=== PATIENT | male | born 1950 | race African-American/Black ===

== ENCOUNTER 2016-09-17 08:24 | Inpatient (IN) | payer OTHER ==
[~2016-09-17] VITALS: Ht 175.3 cm; Wt 96.9 kg
[2016-09-17 08:57] LABS: MCH 28.9 PG (29.0-34.0); MCV 85.1 FL (86-99); MEAN PLAT.VOLUME 10.1 uM^3 (9.0-12.4); PLATELET COUNT 158 K/uL (156-360); RBC DIS.WIDTH-CV 14.3 % (11.8-14.6); RBC DIS.WIDTH-SD 44.1 % (39-53); RED BLOOD COUNT 6.23 M/uL (4.00-5.50); WHITE BLOOD COUNT 24.4 K/uL (4.1-10.2)
[2016-09-17] MEDS ORDERED: ZANTAC150 MG PO (09:03)
[2016-09-17] MEDS ORDERED: METOPROLOL TART25 MG PO (09:03)
[2016-09-17] MEDS ORDERED: SIMVASTATIN40 MG PO (09:04)
[2016-09-17] MEDS ORDERED: NIFEDIPINE ER90 MG PO (09:04)
[2016-09-17 09:32] LABS: CHLORIDE 104 mEq/L (99-109); POTASSIUM 3.5 mEq/L (3.7-5.4); SODIUM 135 mEq/L (136-147)
[2016-09-17 09:33] LABS: GLUCOSE 167 mg/dL (70-99)
[2016-09-17 09:35] LABS: ANION GAP 16 MEQ/L (2-14)
[2016-09-17 09:37] LABS: ADD MIUA? YES; BILIRUBIN SMALL; BLOOD MODERATE; COLOR AMBER ((YELLOW)); GLUCOSE (STRIP) NEGATIVE; KETONES 5; LEUKOCYTES MODERATE; NITRITE NEGATIVE; PROTEIN (STRIP) 100; SPECIFIC GRAVITY 1.027 (1.000-1.030)
[2016-09-17 09:37] LABS: GFR ESTIMATE (CALCULATED) > 59 mL/min/
[2016-09-17 09:38] LABS: UREA NITROGEN (BUN) 16 mg/dL (9-23)
[2016-09-17 09:48] LABS: BACTERIA RARE /HPF; BUDDING YEAST 1+; EPITHELIAL CELLS 1+ /HPF; HYALINE CASTS 20-30 /LPF; MUCUS 2+ /LPF; RED BLOOD CELLS 30-40 /HPF (0-5); UCUL ADDED? YES; WHITE BLOOD CELLS TNTC /HPF (0-5); WHITE BLOOD CELLS CLUMP FEW /HPF (0-5)
[2016-09-17] MEDS ORDERED: NEXIUM20 MG PO (10:44)
[2016-09-17 12:30] VITALS: BP 128/78
[2016-09-17 16:48] VITALS: BP 124/74
[2016-09-17 20:00] VITALS: BP 123/61
[2016-09-17 23:50] VITALS: BP 116/76
[2016-09-18 04:00] VITALS: BP 113/62
[2016-09-18 07:17] LABS: HEMATOCRIT 46.3 % (38.0-50.0); MCH 28.6 PG (29.0-34.0); MCHC 33.5 G/DL (30.0-36.0); MCV 85.4 FL (86-99); MEAN PLAT.VOLUME 10.9 uM^3 (9.0-12.4); PLATELET COUNT 114 K/uL (156-360); RBC DIS.WIDTH-CV 14.1 % (11.8-14.6); RED BLOOD COUNT 5.42 M/uL (4.00-5.50); WHITE BLOOD COUNT 18.5 K/uL (4.1-10.2)
[2016-09-18 07:29] LABS: ANION GAP 8 MEQ/L (2-14); CHLORIDE 106 MEQ/L (99-109); GFR ESTIMATE (CALCULATED) > 59 mL/min/; POTASSIUM 3.6 MEQ/L (3.7-5.4); SAMPLE HEMOLYSIS CHECK 0; SAMPLE ICTERIC CHECK 0; SAMPLE LIPEMIA CHECK 0; SODIUM 136 MEQ/L (136-147); UREA NITROGEN (BUN) 13 mg/dL (9-23)
[2016-09-18 07:32] LABS: GLUCOSE 119 mg/dL (70-99)
[2016-09-18 08:22] VITALS: BP 109/66
[2016-09-18 11:52] VITALS: BP 105/56
[2016-09-18 15:59] VITALS: BP 125/6
[2016-09-19 00:22] VITALS: BP 124/65
[2016-09-19 06:42] LABS: HEMATOCRIT 44.8 % (38.0-50.0); MCH 28.4 PG (29.0-34.0); MCHC 33.3 G/DL (30.0-36.0); MCV 85.5 FL (86-99); MEAN PLAT.VOLUME 11.6 uM^3 (9.0-12.4); PLATELET COUNT 122 K/uL (156-360); RBC DIS.WIDTH-CV 14.1 % (11.8-14.6); RBC DIS.WIDTH-SD 43.7 % (39-53); RED BLOOD COUNT 5.24 M/uL (4.00-5.50); WHITE BLOOD COUNT 14.8 K/uL (4.1-10.2)
[2016-09-19 07:11] LABS: ANION GAP 9 MEQ/L (2-14); CHLORIDE 107 MEQ/L (99-109); GFR ESTIMATE (CALCULATED) > 59 mL/min/; GLUCOSE 112 mg/dL (70-99); POTASSIUM 3.4 MEQ/L (3.7-5.4); SAMPLE HEMOLYSIS CHECK 0; SAMPLE ICTERIC CHECK 0; SAMPLE LIPEMIA CHECK 0; SODIUM 136 MEQ/L (136-147); UREA NITROGEN (BUN) 10 mg/dL (9-23)
[2016-09-19 08:08] VITALS: BP 119/65
[2016-09-19 15:59] VITALS: BP 136/64
[2016-09-19 22:15] VITALS: BP 129/66
[2016-09-20 07:19] LABS: EOSINOPHIL (%) 0.4 % (0-5); EOSINOPHIL COUNT 0.1 K/uL (0-0.3); HEMATOCRIT 43.9 % (38.0-50.0); IMMATURE GRANULOCYTE COUNT 0.1 K/uL; INSTRUMENT ABS NEUTROPHIL CT 8.4 K/uL; LYMPHOCYTE COUNT 1.2 K/uL (1.0-2.8); MCH 28.5 PG (29.0-34.0); MCHC 33.9 G/DL (30.0-36.0); MCV 84.1 FL (86-99); MEAN PLAT.VOLUME 11.4 uM^3 (9.0-12.4); MONOCYTE (%) 16.6 % (3-12); NEUTROPHIL (%) 71.2 % (45-76); NEUTROPHIL COUNT 8.4 K/uL (1.8-6.4); PLATELET COUNT 132 K/uL (156-360); RBC DIS.WIDTH-CV 14.3 % (11.8-14.6); RED BLOOD COUNT 5.22 M/uL (4.00-5.50); WHITE BLOOD COUNT 11.8 K/uL (4.1-10.2)
[2016-09-20 07:41] LABS: ALKALINE PHOSPHATASE 97 IU/L (3-129); ANION GAP 12 MEQ/L (2-14); CHLORIDE 106 MEQ/L (99-109); GFR ESTIMATE (CALCULATED) > 59 mL/min/; GLUCOSE 96 mg/dL (70-99); POTASSIUM 3.8 MEQ/L (3.7-5.4); SAMPLE HEMOLYSIS CHECK 0; SAMPLE ICTERIC CHECK 0; SAMPLE LIPEMIA CHECK 0; SODIUM 136 MEQ/L (136-147); TOTAL BILIRUBIN 0.5 MG/DL (0.0-1.0); UREA NITROGEN (BUN) 8 mg/dL (9-23)
[2016-09-20 08:19] VITALS: BP 117/72
[2016-09-20] MEDS ORDERED: TAMSULOSIN HCL0.4 MG PO (11:36)
[2016-09-20] MEDS ORDERED: CIPRO500 MG PO (11:37)
== END 2016-09-20 13:21 | disposition home or self-care (01) | DRG 871 ==
LOC: EME 08:24 → EDOF 09:55 → 5EAST 09:55 → EDOF 10:04 → 4EAST 12:22 → 5EAST 09-18 20:38
PROVIDERS: Emergency Medicine; Hospitalist; Internal Medicine; Physician Assistant
DX: A41.51 Sepsis due to Escherichia coli [E. coli] (principal); J96.01 Acute respiratory failure with hypoxia; N10 Acute pyelonephritis; N17.9 Acute kidney failure, unspecified; N41.0 Acute prostatitis; B96.20 Unspecified Escherichia coli [E. coli] as the cause of diseases classified elsewhere; E86.0 Dehydration; D75.1 Secondary polycythemia; R97.20 Elevated prostate specific antigen [PSA]; R91.1 Solitary pulmonary nodule; I10 Essential (primary) hypertension; E78.5 Hyperlipidemia, unspecified; M16.0 Bilateral primary osteoarthritis of hip
CPT/HCPCS: 71010; 71250; 73502; 74176; 80048; 80053; 81003; 83605; 83735; 85025; 85027; 87040; 87077; 87086; 87186; 87801; 94799; 99202; 99281; 99285; G0103; J0696; J1170; J1644; J2270; J2405; J2543; J3370; J3480; J7030; J7050